=== PATIENT | female | born 1935 | race Caucasian/White ===

== ENCOUNTER 2020-05-30 08:05 | Day surgery (SDC) | payer MEDICARE ==
[~2020-05-30] VITALS: Ht 154.9 cm; Wt 59.0 kg
[~2020-05-30 08:05] MED LIST: ASPI-529 PO; ATEN50TA2 PO; CLINDAMYCIN/D5W 900mg/50ml 50 ML IV ONE; CLON-418 PO; EZET10TA6 PO; MULT-1085 PO; OSC500T PO; POTA10TA52 PO; THYR60TA2 PO; TRAZ-251 PO; VANCOMYCIN INJ 1000 MG in NORMAL SALINE 250ml IV.SOLN IV ONE; VIT1CAPS27 PO; albuterol 2.5 MG/3 ML nebule NEB ONE; ceFAZolin 2gm in dextrose, iso 50 ML IV ONE; famotidine 20mg tablet PO ONE; ringers solution, lacted 1,000 ML IV SCH
--- NOTE | 2020-05-30 08:30 | NUR ---
PT ARRIVED FOR SURGERY. WOUND ON LT LOWER EXT NOTED. WOUND APPEARS BETTER THEN THE LAST TIME PT WAS HERE FOR SURGERY BUT STILL NOT HEALED ALL THE WAY. DR. BRENNER EXAMINED WOUNDS AND CANCELED SURGERY FOR TODAY WITH ORDERS TO DRESS WOUND AND HAVE PT FOLLOW UP IN OFFICE IN ONE WEEK.
--- NOTE | 2020-05-30 09:00 | NUR ---
WOUND DRESSED TO LT LOWER EXT PER ORDER. PT INSTRUCTED TO CALL DR. BRENNER'S OFFICE FOR FOLLOW UP APPT IN ONE WEEKS. PT DRESSED HERSELF AND CALLED FOR [facility]. I SPOKE WITH PTS DAUGHTER VIA PHONE AND EXPLAINED WHY SURGERY WAS CANCELLED AND FOLLOW UP INST PER PT REQUEST.
--- NOTE | 2020-05-30 09:15 | NUR ---
PT TO POV VIA WC FOR [facility]
== END 2020-05-30 09:15 | disposition home or self-care (01) ==
LOC: SSTAY O 08:05 → UNDOADMIN 08:05 → PAS IN 08:05 → SSTAY O 09:15 → UNDODISIN 09:15 → EDSTATUS 11:00
PROVIDERS: ATTEND Orthopaedic Surgery
DX: M17.12 Unilateral primary osteoarthritis, left knee (principal); Z53.09 Procedure and treatment not carried out because of other contraindication
CPT/HCPCS: J3370; J3490; J7120

== ENCOUNTER 2020-10-16 09:07 | Day surgery (SDC) | payer MEDICARE ==
[~2020-10-16] VITALS: Ht 154.9 cm; Wt 59.7 kg
[2020-10-16] VITALS (11 sets, daily range): BP systolic 141–196; BP diastolic 66–106
[~2020-10-16 09:07] MED LIST changes: +CHLO25TA2 PO; -CLINDAMYCIN/D5W 900mg/50ml 50 ML IV ONE; +OMEP20TA5 PO; -VANCOMYCIN INJ 1000 MG in NORMAL SALINE 250ml IV.SOLN IV ONE; -albuterol 2.5 MG/3 ML nebule NEB ONE; -ceFAZolin 2gm in dextrose, iso 50 ML IV ONE; -famotidine 20mg tablet PO ONE; -ringers solution, lacted 1,000 ML IV SCH
[2020-10-16] MEDS ORDERED: LOSA25TA96 PO (10:18)
[2020-10-16] MEDS ORDERED: CHOL400T32 INJ (10:18)
[2020-10-16] MEDS ORDERED: MAGN500C16 PO (10:18)
[2020-10-16 11:25] LABS: BASOPHILS # (AUTO) 0.1 X10'3 (0-0.2); BASOPHILS % (AUTO) 1.3 % (0-1); EOSINOPHILS # (AUTO) 0.2 X10'3 (0-0.9); EOSINOPHILS % (AUTO) 2.8 % (0-6); HEMATOCRIT 39.6 % (35.0-45.0); LYMPHOCYTES # (AUTO) 1.2 X10'3 (1.1-4.8); LYMPHOCYTES % (AUTO) 14.1 % (21-51); MEAN CORPUSCULAR HEMOGLOBIN 27.8 PG (27.0-31.0); MEAN CORPUSCULAR HGB CONC 32.8 g/dL (33.0-36.5); MEAN CORPUSCULAR VOLUME 84.8 FL (78-98); MEAN PLATELET VOLUME 7.3 FL (7.4-10.4); MONOCYTES # (AUTO) 0.5 X10'3 (0-0.9); MONOCYTES % (AUTO) 6.3 % (2-12); NEUTROPHILS # (AUTO) 6.3 X10'3 (1.8-7.7); NEUTROPHILS % (AUTO) 75.5 % (42-75); PLATELET COUNT 327 X10'3 (140-440); RED BLOOD COUNT 4.66 X10'6 (4.20-5.60); RED CELL DISTRIBUTION WIDTH 14.3 % (11.5-14.5); WHITE BLOOD COUNT 8.4 X10'3 (4.5-11.0)
[2020-10-16 11:34] LABS: ALBUMIN 3.6 G/DL (3.4-5.0); ANION GAP 7 (8-16); BLOOD UREA NITROGEN 12 MG/DL (7-18); BUN/CREATININE RATIO 10.9 (6.6-38.0); CALCIUM 10.5 MG/DL (8.5-10.1); CHLORIDE 102 MMOL/L (99-107); GLUCOSE 96 MG/DL (70-104); POTASSIUM 4.3 MMOL/L (3.5-5.1); SODIUM 139 MMOL/L (135-145); TOTAL CARBON DIOXIDE 29.7 MMOL/L (24-32); eGFR 48 ML/MIN
[2020-10-16] MEDS ORDERED: LIDOcaine 1%/PF 5ML 10 MG/ML VIAL ONE (11:58)
[2020-10-16] MEDS ORDERED: fentaNYL/PF 50MCG/1 ML 2ML syringe ONE ×2 (11:59→12:50)
[2020-10-16] MEDS ORDERED: midazolam 2 mg/2 ml injection ONE ×2 (11:59→12:50)
[2020-10-16] MEDS ORDERED: heparin 1,000 UNITS/NS 500ml 500 ML ONE ×2 (12:00→13:45)
[2020-10-16] MEDS ORDERED: heparin 1,000unit/ml 10ml vial 10 ML ONE (12:00)
[2020-10-16] MEDS ORDERED: iohexol 300mg/ml 100ml inj. ONE ×2 (12:00→13:35)
[2020-10-16] MEDS ORDERED: nitroGLYCERIN-Tridil 50MG/D5W 250 ML IV ONE (14:24)
[2020-10-16] MEDS ORDERED: hydrALAZINE 20mg/ml inj. IV ONE (15:06)
== END 2020-10-16 19:23 | disposition home or self-care (01) ==
LOC: SSTAY O 09:07
PROVIDERS: ATTEND Radiology Vascular & Interventional Radiology
DX: I70.212 Atherosclerosis of native arteries of extremities with intermittent claudication, left leg (principal); I10 Essential (primary) hypertension; Z88.0 Allergy status to penicillin; Z88.2 Allergy status to sulfonamides; Z88.5 Allergy status to narcotic agent; Z88.8 Allergy status to other drugs, medicaments and biological substances; Z79.899 Other long term (current) drug therapy; Z72.89 Other problems related to lifestyle; Z20.822 Contact with and (suspected) exposure to COVID-19
CPT/HCPCS: 36415; 37224; 37228; 37232; 75710; 80048; 85025; 87635; 99152; 99153; C1725; C1760; C1769; C1894; C2623; C9803; J0360; J1644; J2250; J3010; Q9967; J3490

== ENCOUNTER 2022-04-23 10:18 | Inpatient (IN) | payer MEDICARE ==
[2022-04-23] VITALS (20 sets, daily range): BP systolic 82–181; BP diastolic 34–99
[~2022-04-23] VITALS: Ht 152.4 cm; Wt 61.0 kg
[~2022-04-23 10:18] MED LIST changes: -CHLO25TA2 PO; +CHOL400T32 INJ; +LOSA25TA96 PO; +MAGN500C4 PO; +OMEP20TA43 PO; -OMEP20TA5 PO; -OSC500T PO; +atropine 0.1mg/ml 10ml syringe ONE; +heparin 10,000 units/1 ML INJ ONE; +heparin, porcine-25,000 units/D5-250ml premix IV ONE; +sod chloride 0.9% 10ml flush syringe IV ONE
[2022-04-23] MEDS ORDERED: LIDOcaine 1%/PF 5ML 10 MG/ML VIAL ONE ×2 (10:22→10:39)
--- NOTE | 2022-04-23 10:24 | NUR ---
PT BEING SEEN BY MEDICAL ASSISTANT PRN DR. WILLIAMSON, RECEIVED VO ADMINISTER HEPARIN BOLUS STAT PER PROTOCOL, UPDATED LABS PENDING AND X-RAY NOT COMPLETED, VO TO NOT WAIT AND ADMINISTER STAT PER DR. WILLIAMSON.
[2022-04-23] MEDS ORDERED: fentaNYL/PF 50MCG/1 ML 2ML syringe ONE (10:40)
[2022-04-23] MEDS ORDERED: iohexol 350MG/ML 100ml bottle IV ONE ×2 (10:40→11:29)
[2022-04-23] MEDS ORDERED: heparin 1,000unit/ml 10ml vial 10 ML ONE (10:40)
[2022-04-23] MEDS ORDERED: heparin 10,000 units/1 ML INJ IV ONE (10:40)
[2022-04-23] MEDS ORDERED: heparin 25,000 UNIT/250ml bag 250 ML IV SCH (10:40)
[2022-04-23] MEDS ORDERED: midazolam 1 mg/ML 2ml injection ONE (10:40)
[2022-04-23] MEDS ORDERED: heparin 10,000 units/1 ML INJ IV PRN (10:40)
--- NOTE | 2022-04-23 10:51 | NUR ---
PT TAKEN TO PATIENT RELATIONS SPECIALIST
[2022-04-23] MEDS ORDERED: tirofiban 5mg in NS 100mL 100 ML IV ONE (10:57)
[2022-04-23 11:09] LABS: BASOPHILS # (AUTO) 0.1 X10'3 (0-0.2); BASOPHILS % (AUTO) 0.9 % (0-1); EOSINOPHILS # (AUTO) 0.2 X10'3 (0-0.9); EOSINOPHILS % (AUTO) 2.7 % (0-6); HEMATOCRIT 35.6 % (35.0-45.0); HEMOGLOBIN 11.9 g/dl (12.0-16.0); LYMPHOCYTES # (AUTO) 1.8 X10'3 (1.1-4.8); LYMPHOCYTES % (AUTO) 19.3 % (21-51); MEAN CORPUSCULAR HEMOGLOBIN 28.4 PG (27.0-31.0); MEAN CORPUSCULAR HGB CONC 33.6 g/dL (33.0-36.5); MEAN CORPUSCULAR VOLUME 84.6 FL (78-98); MEAN PLATELET VOLUME 8.2 FL (7.4-10.4); MONOCYTES # (AUTO) 0.7 X10'3 (0-0.9); MONOCYTES % (AUTO) 7.3 % (2-12); NEUTROPHILS # (AUTO) 6.5 X10'3 (1.8-7.7); NEUTROPHILS % (AUTO) 69.8 % (42-75); PLATELET COUNT 288 X10'3 (140-440); RED CELL DISTRIBUTION WIDTH 14.6 % (11.5-14.5); WHITE BLOOD COUNT 9.3 X10'3 (4.5-11.0)
[2022-04-23 11:17] LABS: APTT 28 SECONDS (22-32)
[2022-04-23] MEDS ORDERED: nitroGLYCERIN-Tridil 50MG/D5W 250 ML IV ONE ×2 (11:18→11:38)
[2022-04-23 11:19] LABS: ALANINE AMINOTRANSFERASE 36 U/L (12-78); ALBUMIN 3.4 G/DL (3.4-5.0); ALBUMIN/GLOBULIN RATIO 1.1 (1.1-1.5); ANION GAP 12 (8-16); ASPARTATE AMINO TRANSFERASE 100 U/L (10-37); BILIRUBIN,TOTAL 0.9 MG/DL (0.1-1.0); BLOOD UREA NITROGEN 24 MG/DL (7-18); BUN/CREATININE RATIO 16.4 (6.6-38.0); CHLORIDE 105 MMOL/L (99-107); CREATININE 1.46 MG/DL (0.40-0.90); GLUCOSE 122 MG/DL (70-104); POTASSIUM 4.4 MMOL/L (3.5-5.1); SODIUM 139 MMOL/L (135-145); TOTAL CARBON DIOXIDE 22.5 MMOL/L (24-32); TOTAL PROTEIN 6.6 G/DL (6.4-8.2); eGFR 34 ML/MIN
[2022-04-23 11:34] LABS: ALKALINE PHOSPHATASE 62 IU/L (46-116)
[2022-04-23] MEDS ORDERED: clopidogrel 300mg tablet ONE (11:59)
[2022-04-23] MEDS ORDERED: furosemide 40mg/4ml inj ONE (12:11)
[2022-04-23] MEDS: normal saline 1000ml 1,000 ML IV SCH (12:50)
[2022-04-23] MEDS ORDERED: morphine 4 MG/ML inj SYRINge IV PRN (13:05)
[2022-04-23] MEDS ORDERED: acetaminophen 325mg tablet PO PRN ×3 (13:05→16:00)
[2022-04-23] MEDS ORDERED: OXAZEpam 15mg capsule PO PRN (13:05)
[2022-04-23] MEDS ORDERED: magnesium hydroxide 30ml (MOM) UD suspension PO PRN ×2 (13:05→16:00)
[2022-04-23] MEDS ORDERED: cyclobenzaprine 10mg tablet PO PRN (13:05)
[2022-04-23] MEDS ORDERED: HYDROcodone/acetaminophen 10/325mg tab PO PRN (13:05)
[2022-04-23] MEDS ORDERED: proCHLORperazine 10 MG/2 ml inj IV PRN (13:05)
[2022-04-23] MEDS ORDERED: nitroGLYCERIN-Tridil 50MG/D5W 250 ML IV PRN (13:45)
[2022-04-23] MEDS ORDERED: sodium chloride 0.45% 1,000 ML IV SCH (13:45)
[2022-04-23] MEDS ORDERED: CLOPIDOGREL BISULFATE 300MG TAB PO ONE (14:00)
--- NOTE | 2022-04-23 15:00 | NUR ---
VSS, pt's R lilliana dsg CDI and sheath in, Patient report given, questions answered & plan of care reviewed with EARLINE Rivas, pt in room #2011 and in no distress at this time.
[2022-04-23] MEDS ORDERED: potassium CL 10mEq/100ml bag 100 ML IV PRN (16:00)
[2022-04-23] MEDS ORDERED: magnesium 4gm in 100ml NS 100 ML IV PRN (16:00)
[2022-04-23] MEDS ORDERED: ondansetron/PF 4mg/2ml inj IV PRN (16:00)
[2022-04-23] MEDS ORDERED: ipratropium/albuterol 3ml nebule NEB PRN (16:00)
[2022-04-23] MEDS ORDERED: LIDOcaine 2% 10ml TOPICAL JELLY (Urojet) TP ONE (16:00)
[2022-04-23] MEDS ORDERED: potassium Cl 20mEq/100mL bag 100 ML IV PRN (16:00)
[2022-04-23] MEDS ORDERED: acetaminophen 650mg rectal suppository RC PRN (16:00)
[2022-04-23] MEDS ORDERED: magnesium 2GM in 50ml NS 50 ML IV PRN (16:00)
[2022-04-23] MEDS ORDERED: POTASSIUM BICARB 20meq eff tab 20 MEQ TABLET.EFF PO PRN ×2 (16:00)
[2022-04-23] MEDS ORDERED: cholecalciferol (vitamin D3) 400 unit (10mcg) tablet PO SCH (16:30)
[2022-04-23] MEDS ORDERED: ESOM20CA38 PO (16:54)
[2022-04-23] MEDS ORDERED: ROSU40TA22 PO (16:54)
[2022-04-23] MEDS ORDERED: POTA-208 PO (16:54)
[2022-04-23] MEDS ORDERED: FENO48TA10 PO (16:54)
[2022-04-23] MEDS ORDERED: ATEN50TA8 PO (16:54)
[2022-04-23] MEDS ORDERED: LOSA50TA64 PO (16:54)
[2022-04-23] MEDS ORDERED: TRAZ-256 PO (16:54)
[2022-04-23] MEDS ORDERED: THYR90TA12 PO (16:54)
--- NOTE | 2022-04-23 18:30 | NUR ---
I've received report and assumed care of pt, Pt resting in bed, family at bedside, rt femoral sheath assessed with Day shift bellows charger assembler, no hematoma noted, distal pulses are Doppler bilateral, cool to touch. Pt denies chest pain, numbness or tingling. Speech clear thought process clear.
--- NOTE | 2022-04-23 18:31 | NUR ---
Pt was bleeding at right sheath groin site. Pressure applied for 8 min. dressing changed. no hematoma, sand bag placed on site
[2022-04-23] MEDS ORDERED: atenolol 50mg tablet PO SCH (20:00)
[2022-04-23] MEDS ORDERED: losartan 50mg tablet PO SCH (20:00)
[2022-04-23] MEDS: docusate sod 100mg capsule PO SCH (20:00)
[2022-04-23] MEDS ORDERED: docusate sod 100mg capsule PO SCH (20:00)
[2022-04-23] MEDS: tirofiban 5mg in NS 100mL 100 ML IV SCH (20:37)
[2022-04-23] MEDS: famotidine 20mg tablet PO SCH (20:37)
[2022-04-23] MEDS: traZODone 50mg tablet PO SCH (20:37)
[2022-04-23] MEDS: magnesium oxide 400mg tablet PO SCH (20:37)
--- NOTE | 2022-04-23 20:45 | NUR ---
pt had a brief episode of hypotension, SBP in the 60's, sever bradycardia heart rate in the 30's, pt was unresponsive but eyes open, 1 amp atropine give and 200 ml fluid bolus administered, this lasted approx 45 sec, pt became more responsive followed by a brief moment of confusion, Spoke to Kaz Jones who ordered dobutamine 10 mcg/kg. min to keep sbp greater then 100. Stat echo ordered, Dr. Mccurdy in to evaluate pt. Message left for Dr. Swan and Dr. Lopez as Dr. Mccurdy wanted to update them on pts condition. Dr Mccurdy also wanted all betablockers, BECKIE and ARBs discontinued at this time.
[2022-04-23] MEDS: POTASSIUM BICARBONATE/CIT AC 10 MEQ TABLET.EFF PO SCH (21:00)
[2022-04-23] MEDS ORDERED: traZODone 50mg tablet PO SCH (21:00)
[2022-04-23] MEDS ORDERED: DOBUTamine-DoBUTrex 500mg/D5W 250 ML IV ONE (21:24)
[2022-04-23] MEDS ORDERED: DOBUTamine-DoBUTrex 500mg/D5W 250 ML IV SCH (21:25)
[2022-04-23 21:50] LABS: BASOPHILS % (AUTO) 0.5 % (0-1); EOSINOPHILS # (AUTO) 0.1 X10'3 (0-0.9); EOSINOPHILS % (AUTO) 0.9 % (0-6); HEMATOCRIT 33.6 % (35.0-45.0); HEMOGLOBIN 11.2 g/dl (12.0-16.0); LYMPHOCYTES # (AUTO) 1.8 X10'3 (1.1-4.8); LYMPHOCYTES % (AUTO) 18.3 % (21-51); MEAN CORPUSCULAR HEMOGLOBIN 28.1 PG (27.0-31.0); MEAN CORPUSCULAR HGB CONC 33.4 g/dL (33.0-36.5); MEAN CORPUSCULAR VOLUME 84.1 FL (78-98); MEAN PLATELET VOLUME 8.1 FL (7.4-10.4); MONOCYTES # (AUTO) 0.9 X10'3 (0-0.9); MONOCYTES % (AUTO) 9.8 % (2-12); NEUTROPHILS # (AUTO) 6.8 X10'3 (1.8-7.7); NEUTROPHILS % (AUTO) 70.5 % (42-75); PLATELET COUNT 257 X10'3 (140-440); WHITE BLOOD COUNT 9.6 X10'3 (4.5-11.0)
[2022-04-23] MEDS ORDERED: albumin (Human) 5% 250ml 250 ML IV ONE (23:00)
[2022-04-23] MEDS ORDERED: NORepinephrine 8mg/ 250ml NS 250 ML IV SCH (23:00)
[2022-04-24] VITALS (23 sets, daily range): BP systolic 97–142; BP diastolic 36–64
[2022-04-24] MEDS ORDERED: albumin (Human) 5% 250ml 250 ML IV ONE ×2 (03:35→03:50)
[2022-04-24 03:45] LABS: BASOPHILS % (AUTO) 0.3 % (0-1); EOSINOPHILS % (AUTO) 0.4 % (0-6); HEMATOCRIT 28.9 % (35.0-45.0); HEMOGLOBIN 9.8 g/dl (12.0-16.0); LYMPHOCYTES % (AUTO) 11.6 % (21-51); MEAN CORPUSCULAR HEMOGLOBIN 28.5 PG (27.0-31.0); MEAN CORPUSCULAR HGB CONC 33.8 g/dL (33.0-36.5); MEAN CORPUSCULAR VOLUME 84.4 FL (78-98); MEAN PLATELET VOLUME 8.5 FL (7.4-10.4); MONOCYTES # (AUTO) 0.5 X10'3 (0-0.9); MONOCYTES % (AUTO) 6.4 % (2-12); NEUTROPHILS # (AUTO) 6.8 X10'3 (1.8-7.7); NEUTROPHILS % (AUTO) 81.3 % (42-75); PLATELET COUNT 223 X10'3 (140-440); RED BLOOD COUNT 3.43 X10'6 (4.20-5.60); RED CELL DISTRIBUTION WIDTH 14.7 % (11.5-14.5); WHITE BLOOD COUNT 8.4 X10'3 (4.5-11.0)
[2022-04-24 03:55] LABS: APTT 62 SECONDS (22-32)
[2022-04-24 04:17] LABS: ALANINE AMINOTRANSFERASE 38 U/L (12-78); ALBUMIN 3.3 G/DL (3.4-5.0); ALBUMIN/GLOBULIN RATIO 1.2 (1.1-1.5); ALKALINE PHOSPHATASE 49 IU/L (46-116); ANION GAP 14 (8-16); ASPARTATE AMINO TRANSFERASE 175 U/L (10-37); BILIRUBIN,TOTAL 0.9 MG/DL (0.1-1.0); BLOOD UREA NITROGEN 25 MG/DL (7-18); BUN/CREATININE RATIO 15.8 (6.6-38.0); CALCIUM 8.8 MG/DL (8.5-10.1); CHLORIDE 100 MMOL/L (99-107); CHOL/HDL RATIO 2.6 (0.00-4.99); CHOLESTEROL 87 MG/DL (0-200); CREATINE KINASE 743 U/L (26-192); CREATININE 1.58 MG/DL (0.40-0.90); GLUCOSE 99 MG/DL (70-104); HDL CHOLESTEROL 34 MG/DL (35-60); LDL CHOLESTEROL 41 MG/DL (50-100); MAGNESIUM 1.7 MG/DL (1.5-2.4); PHOSPHORUS 4.1 MG/DL (2.3-4.5); POTASSIUM 3.8 MMOL/L (3.5-5.1); SODIUM 134 MMOL/L (135-145); TOTAL CARBON DIOXIDE 20.4 MMOL/L (24-32); TRIGLYCERIDES 55 MG/DL (20-135); eGFR 31 ML/MIN
--- NOTE | 2022-04-24 05:42 | NUR ---
[address] Swan regarding pts low urine output and sbp less then 100 new orders for 5% albumin 250 ml and start low dose Levophed. MD is aware that the pt needs a CVL, does not have one, the dobutamine and Levophed will be transfusing via PIV. [address] Swan once more as pt continues to have low urine output, orders received fro 500ml of 5% albumin.
--- NOTE | 2022-04-24 06:03 | NUR ---
report given to rec rn plan of care reviewed
[2022-04-24] MEDS: tirofiban 5mg in NS 100mL 100 ML IV SCH (07:00)
[2022-04-24] MEDS: multivitamins, therapeutics tablet PO SCH (07:17)
[2022-04-24] MEDS: magnesium oxide 400mg tablet PO SCH ×2 (07:17→20:15)
[2022-04-24] MEDS: pantoprazole 40mg Tablet.DR PO SCH (07:18)
[2022-04-24] MEDS: atorvastatin 20mg tablet PO SCH (07:18)
[2022-04-24] MEDS: famotidine 20mg tablet PO SCH (07:19)
[2022-04-24] MEDS: docusate sod 100mg capsule PO SCH ×2 (07:19→20:15)
[2022-04-24] MEDS: clopidogrel 75mg tablet PO SCH (07:19)
--- NOTE | 2022-04-24 07:26 | NUR ---
Patient in room CICU 2010. I have received report from Pau Gloria RN and had the opportunity to ask questions and assume patient care.
--- NOTE | 2022-04-24 07:26 | NUR ---
TIRE TESTER Visit Advised to hold catapres this am and CN agreed. Orders received.
[2022-04-24] MEDS: fenofibrate 48mg tablet PO SCH (07:29)
[2022-04-24] MEDS: thyroid, pork 30mg tablet PO SCH (07:29)
[2022-04-24] MEDS ORDERED: cloNIDine 0.1 mg tablet PO SCH (08:00)
[2022-04-24] MEDS ORDERED: atenolol 50mg tablet PO SCH (08:00)
[2022-04-24] MEDS ORDERED: ezetimibe 10mg tablet PO SCH (08:00)
[2022-04-24] MEDS ORDERED: THYROID PORK PO SCH (08:00)
[2022-04-24] MEDS ORDERED: losartan 25mg tablet PO SCH (08:00)
[2022-04-24] MEDS: K and/or MAG REPLACEMENT MC SCH (08:03)
[2022-04-24] MEDS: aspirin 81mg tab.chew PO SCH (08:30)
[2022-04-24] MEDS ORDERED: LIDOcaine 1%/PF 5ML 10 MG/ML VIAL ONE (10:42)
--- NOTE | 2022-04-24 11:19 | NUR ---
Sheath Removal Mikie PATTEN from sugar laboratory assistant removed sheath and inserted VasoSeal. Pt given [place] pre removal but was painful. Mikie indicated pt had a hematoma at site. Smal 2x2 dressing with clear dressing applied. No bleeding noted at this time. Pt understands that she must keep that right leg still until approximately [address] Lopez to see and agreed with Dobutamine being held for now.
--- NOTE | 2022-04-24 17:22 | NUR ---
Repositioned: Post sheath removal time finishes. Not s/s of bleeding or hematoma enlargement at site. Pt repositioned to comfort on Rt side.
--- NOTE | 2022-04-24 18:39 | NUR ---
Patient in room CICU 2010. I have received report from Mary PATTEN and had the opportunity to ask questions and assume patient care.
--- NOTE | 2022-04-24 19:40 | NUR ---
Patient complains of nausea. 40mg of Zofran was administered. No acute distress noted. Pt. complains of IWill continue to monitor.
[2022-04-24] MEDS: traZODone 50mg tablet PO SCH (20:15)
[2022-04-24] MEDS: POTASSIUM BICARBONATE/CIT AC 10 MEQ TABLET.EFF PO SCH (20:15)
[2022-04-25] VITALS (17 sets, daily range): BP systolic 114–205; BP diastolic 48–105
[2022-04-25] MEDS: normal saline 1000ml 1,000 ML IV SCH ×2 (01:35→10:15)
[2022-04-25 07:56] LABS: BASOPHILS % (AUTO) 0.6 % (0-1); EOSINOPHILS # (AUTO) 0.3 X10'3 (0-0.9); EOSINOPHILS % (AUTO) 4.1 % (0-6); HEMATOCRIT 28.6 % (35.0-45.0); HEMOGLOBIN 9.6 g/dl (12.0-16.0); LYMPHOCYTES # (AUTO) 0.9 X10'3 (1.1-4.8); LYMPHOCYTES % (AUTO) 11.6 % (21-51); MEAN CORPUSCULAR HEMOGLOBIN 28.4 PG (27.0-31.0); MEAN CORPUSCULAR HGB CONC 33.5 g/dL (33.0-36.5); MEAN CORPUSCULAR VOLUME 84.8 FL (78-98); MEAN PLATELET VOLUME 8.4 FL (7.4-10.4); MONOCYTES # (AUTO) 0.6 X10'3 (0-0.9); MONOCYTES % (AUTO) 8.1 % (2-12); NEUTROPHILS # (AUTO) 5.9 X10'3 (1.8-7.7); NEUTROPHILS % (AUTO) 75.6 % (42-75); PLATELET COUNT 198 X10'3 (140-440); RED BLOOD COUNT 3.38 X10'6 (4.20-5.60); WHITE BLOOD COUNT 7.8 X10'3 (4.5-11.0)
[2022-04-25] MEDS: K and/or MAG REPLACEMENT MC SCH (08:00)
[2022-04-25] MEDS: docusate sod 100mg capsule PO SCH ×2 (08:12→19:39)
[2022-04-25] MEDS: pantoprazole 40mg Tablet.DR PO SCH (08:13)
[2022-04-25] MEDS: multivitamins, therapeutics tablet PO SCH (08:13)
[2022-04-25] MEDS: thyroid, pork 30mg tablet PO SCH (08:13)
[2022-04-25] MEDS: fenofibrate 48mg tablet PO SCH (08:13)
[2022-04-25] MEDS: magnesium oxide 400mg tablet PO SCH ×2 (08:13→19:39)
[2022-04-25] MEDS: clopidogrel 75mg tablet PO SCH (08:13)
[2022-04-25 08:14] LABS: ALBUMIN 3.4 G/DL (3.4-5.0); ANION GAP 5 (8-16); BLOOD UREA NITROGEN 25 MG/DL (7-18); BUN/CREATININE RATIO 14.6 (6.6-38.0); CHLORIDE 105 MMOL/L (99-107); CREATININE 1.71 MG/DL (0.40-0.90); GLUCOSE 104 MG/DL (70-104); SODIUM 136 MMOL/L (135-145); TOTAL CARBON DIOXIDE 25.7 MMOL/L (24-32); eGFR 28 ML/MIN
[2022-04-25] MEDS: atorvastatin 20mg tablet PO SCH (08:14)
[2022-04-25] MEDS: aspirin 81mg tab.chew PO SCH (08:14)
--- NOTE | 2022-04-25 09:53 | NUR ---
transfer report given to Frannie PATTEN for bed 3027V. Patient to be transferred via wheel chair. VVS Patient in stable condition.
[2022-04-25] MEDS: carVEDilol 3.125mg tablet PO SCH ×2 (12:01→19:39)
--- NOTE | 2022-04-25 14:16 | NUR ---
Patient in room PCU 3024. I have received report from Frannie PATTEN and had the opportunity to ask questions and assume patient care.
[2022-04-25] MEDS: furosemide 20MG tablet PO SCH (14:17)
--- NOTE | 2022-04-25 14:32 | NUR ---
[facility] REMOVED, IT WAS INTACT,PROVIDED PERICARE.
[2022-04-25] MEDS ORDERED: lactulose 20gm/30ml cup PO PRN (16:00)
--- NOTE | 2022-04-25 18:30 | NUR ---
Patient in room PCU 3024. I have received report from EARLINE Cadet and had the opportunity to ask questions and assume patient care.
--- NOTE | 2022-04-25 18:48 | NUR ---
Problems reprioritized. Patient report given, questions answered & plan of care reviewed with Magaly PATTEN.
[2022-04-25] MEDS: traZODone 50mg tablet PO SCH (20:39)
[2022-04-25] MEDS: POTASSIUM BICARBONATE/CIT AC 10 MEQ TABLET.EFF PO SCH (20:39)
[2022-04-26 02:00] VITALS: BP 152/77
[2022-04-26 06:00] VITALS: BP 157/74
--- NOTE | 2022-04-26 06:24 | NUR ---
Patient in room PCU 3024. I have received report from Magaly PATTEN and had the opportunity to ask questions and assume patient care.
--- NOTE | 2022-04-26 06:26 | NUR ---
Problems reprioritized. Patient report given, questions answered & plan of care reviewed with EARLINE Cadet.
[2022-04-26] MEDS ORDERED: thyroid, pork 30mg tablet PO SCH (07:00)
[2022-04-26 07:18] LABS: BASOPHILS % (AUTO) 0.5 % (0-1); EOSINOPHILS # (AUTO) 0.4 X10'3 (0-0.9); EOSINOPHILS % (AUTO) 4.4 % (0-6); HEMATOCRIT 26.8 % (35.0-45.0); HEMOGLOBIN 9.1 g/dl (12.0-16.0); LYMPHOCYTES # (AUTO) 1.1 X10'3 (1.1-4.8); MEAN CORPUSCULAR HEMOGLOBIN 28.6 PG (27.0-31.0); MEAN CORPUSCULAR HGB CONC 34.1 g/dL (33.0-36.5); MEAN CORPUSCULAR VOLUME 83.8 FL (78-98); MEAN PLATELET VOLUME 8.5 FL (7.4-10.4); MONOCYTES # (AUTO) 0.7 X10'3 (0-0.9); MONOCYTES % (AUTO) 8.3 % (2-12); NEUTROPHILS # (AUTO) 6.7 X10'3 (1.8-7.7); NEUTROPHILS % (AUTO) 74.8 % (42-75); PLATELET COUNT 197 X10'3 (140-440); RED BLOOD COUNT 3.19 X10'6 (4.20-5.60); RED CELL DISTRIBUTION WIDTH 15.1 % (11.5-14.5)
[2022-04-26 07:30] LABS: ALBUMIN 3.5 G/DL (3.4-5.0); ANION GAP 5 (8-16); BLOOD UREA NITROGEN 21 MG/DL (7-18); CALCIUM 9.4 MG/DL (8.5-10.1); CHLORIDE 104 MMOL/L (99-107); GLUCOSE 101 MG/DL (70-104); MAGNESIUM 1.8 MG/DL (1.5-2.4); POTASSIUM 4.5 MMOL/L (3.5-5.1); SODIUM 136 MMOL/L (135-145); TOTAL CARBON DIOXIDE 26.9 MMOL/L (24-32); eGFR 33 ML/MIN
[2022-04-26] MEDS: aspirin 81mg tab.chew PO SCH (07:41)
[2022-04-26] MEDS: atorvastatin 20mg tablet PO SCH (07:41)
[2022-04-26] MEDS: docusate sod 100mg capsule PO SCH (07:42)
[2022-04-26] MEDS: magnesium oxide 400mg tablet PO SCH (07:42)
[2022-04-26] MEDS: multivitamins, therapeutics tablet PO SCH (07:43)
[2022-04-26] MEDS: clopidogrel 75mg tablet PO SCH (07:43)
[2022-04-26] MEDS: pantoprazole 40mg Tablet.DR PO SCH (07:43)
[2022-04-26] MEDS: furosemide 20MG tablet PO SCH (07:43)
[2022-04-26] MEDS: K and/or MAG REPLACEMENT MC SCH (08:00)
[2022-04-26] MEDS ORDERED: famotidine 20mg tablet PO SCH (08:00)
[2022-04-26] MEDS ORDERED: carVEDilol 12.5mg tablet PO SCH (08:00)
[2022-04-26] MEDS ORDERED: CARV-50 PO (09:27)
[2022-04-26] MEDS ORDERED: CLOP75TA34 PO (09:27)
[2022-04-26] MEDS ORDERED: FURO20TA4 PO (10:36)
[2022-04-26 11:00] VITALS: BP 119/71
[2022-04-26] MEDS: fenofibrate 48mg tablet PO SCH (11:12)
--- NOTE | 2022-04-26 15:46 | NUR ---
Patients discharge instructions reviewed with patient and patient verbalized understanding with pie topper Matias. pie topper stated patient has her new medications. Patients IV dc'd cannula intact. Tele DC for discharge. Patient states she has all her belongings. Patient was taken to daughters vehicle via wheelchair by community specialist Jordyn.
== END 2022-04-26 15:25 | disposition home health service (06) | DRG 246 ==
LOC: ER 10:18 → UNDOADMIN 15:11 → CICU 2S 15:11 → PCU 3S 04-25 10:15
PROVIDERS: ADMIT Internal Medicine Cardiovascular Disease; ATTEND Internal Medicine Cardiovascular Disease
PROC: 4A023N7 Measurement of Cardiac Sampling and Pressure, Left Heart, Percutaneous Approach (ICD-10-PCS; principal; 2022-04-23)
PROC: 027034Z Dilation of Coronary Artery, One Artery with Drug-eluting Intraluminal Device, Percutaneous Approach (ICD-10-PCS; 2022-04-23)
PROC: B2111ZZ Fluoroscopy of Multiple Coronary Arteries using Low Osmolar Contrast (ICD-10-PCS; 2022-04-23)
PROC: B2151ZZ Fluoroscopy of Left Heart using Low Osmolar Contrast (ICD-10-PCS; 2022-04-23)
PROC: B41F1ZZ Fluoroscopy of Right Lower Extremity Arteries using Low Osmolar Contrast (ICD-10-PCS; 2022-04-23)
DX: I21.09 ST elevation (STEMI) myocardial infarction involving other coronary artery of anterior wall (principal); I50.21 Acute systolic (congestive) heart failure; R57.0 Cardiogenic shock; I13.0 Hypertensive heart and chronic kidney disease with heart failure and stage 1 through stage 4 chronic kidney disease, or unspecified chronic kidney disease; E87.1 Hypo-osmolality and hyponatremia; N17.9 Acute kidney failure, unspecified; N18.30 Chronic kidney disease, stage 3 unspecified; J45.909 Unspecified asthma, uncomplicated; I73.9 Peripheral vascular disease, unspecified; I65.29 Occlusion and stenosis of unspecified carotid artery; E03.9 Hypothyroidism, unspecified; D64.9 Anemia, unspecified; E78.5 Hyperlipidemia, unspecified; G25.81 Restless legs syndrome; I34.1 Nonrheumatic mitral (valve) prolapse; F09 Unspecified mental disorder due to known physiological condition; K21.9 Gastro-esophageal reflux disease without esophagitis; I25.5 Ischemic cardiomyopathy; Z96.611 Presence of right artificial shoulder joint; F32.A Depression, unspecified; R74.01 Elevation of levels of liver transaminase levels; Z96.612 Presence of left artificial shoulder joint; G40.909 Epilepsy, unspecified, not intractable, without status epilepticus; I25.10 Atherosclerotic heart disease of native coronary artery without angina pectoris; Z86.011 Personal history of benign neoplasm of the brain; Z79.02 Long term (current) use of antithrombotics/antiplatelets; Z79.82 Long term (current) use of aspirin; Z79.899 Other long term (current) drug therapy; Z85.828 Personal history of other malignant neoplasm of skin; Z88.0 Allergy status to penicillin; Z95.5 Presence of coronary angioplasty implant and graft; Z88.5 Allergy status to narcotic agent; Z88.2 Allergy status to sulfonamides
CPT/HCPCS: 93306; 93308; 93458; 99285; C9606; 36415; 71045; 80048; 80053; 80061; 82550; 82948; 83735; 83880; 84100; 84443; 84484; 85025; 85610; 85730; 93005; 94760; 97116; 97161; 97530; 99152; 99153; A4314; A4620; A4649; A6212; A6258; A6260; A6449; C1725; C1751; C1760; C1769; C1874; G0378; J0461; J1250; J1644; J1940; J2250; J2405; J3010; J3246; J3490; J7030; J7040; P9045; Q9967

== ENCOUNTER 2022-04-30 11:51 | Emergency (ER) | payer MEDICARE ==
[~2022-04-30] VITALS: Ht 154.9 cm; Wt 52.3 kg
[~2022-04-30 11:51] MED LIST changes: -ATEN50TA2 PO; +CARV-50 PO; -CHOL400T32 INJ; -CLON-418 PO; +CLOP75TA34 PO; +ESOM20CA38 PO; -EZET10TA6 PO; +FENO48TA10 PO; +FURO20TA4 PO; -LOSA25TA96 PO; +LOSA50TA64 PO; -MAGN500C4 PO; -OMEP20TA43 PO; +POTA-208 PO; -POTA10TA52 PO; +ROSU40TA22 PO; -THYR60TA2 PO; +THYR90TA12 PO; -TRAZ-251 PO; +TRAZ-256 PO; -VIT1CAPS27 PO; -atropine 0.1mg/ml 10ml syringe ONE; -heparin 10,000 units/1 ML INJ ONE; -heparin, porcine-25,000 units/D5-250ml premix IV ONE; -sod chloride 0.9% 10ml flush syringe IV ONE
[2022-04-30] MEDS ORDERED: normal saline 1000ML IV soln IVB ONE (12:00)
[2022-04-30 12:27] LABS: BASOPHILS # (AUTO) 0.1 X10'3 (0-0.2); BASOPHILS % (AUTO) 1.1 % (0-1); EOSINOPHILS # (AUTO) 0.4 X10'3 (0-0.9); EOSINOPHILS % (AUTO) 5.9 % (0-6); HEMATOCRIT 30.4 % (35.0-45.0); HEMOGLOBIN 10.3 g/dl (12.0-16.0); LYMPHOCYTES % (AUTO) 14.1 % (21-51); MEAN CORPUSCULAR HEMOGLOBIN 28.3 PG (27.0-31.0); MEAN CORPUSCULAR HGB CONC 33.8 g/dL (33.0-36.5); MEAN CORPUSCULAR VOLUME 83.6 FL (78-98); MEAN PLATELET VOLUME 7.7 FL (7.4-10.4); MONOCYTES # (AUTO) 0.9 X10'3 (0-0.9); MONOCYTES % (AUTO) 12.5 % (2-12); NEUTROPHILS # (AUTO) 4.7 X10'3 (1.8-7.7); NEUTROPHILS % (AUTO) 66.4 % (42-75); PLATELET COUNT 351 X10'3 (140-440); RED BLOOD COUNT 3.64 X10'6 (4.20-5.60); RED CELL DISTRIBUTION WIDTH 14.6 % (11.5-14.5); WHITE BLOOD COUNT 7.1 X10'3 (4.5-11.0)
[2022-04-30 12:45] LABS: ALANINE AMINOTRANSFERASE 30 U/L (12-78); ALBUMIN 3.7 G/DL (3.4-5.0); ALBUMIN/GLOBULIN RATIO 1.2 (1.1-1.5); ALKALINE PHOSPHATASE 65 IU/L (46-116); ANION GAP 9 (8-16); ASPARTATE AMINO TRANSFERASE 26 U/L (10-37); BILIRUBIN,TOTAL 0.7 MG/DL (0.1-1.0); BLOOD UREA NITROGEN 29 MG/DL (7-18); BUN/CREATININE RATIO 14.6 (6.6-38.0); CALCIUM 10.7 MG/DL (8.5-10.1); CHLORIDE 100 MMOL/L (99-107); CREATININE 1.99 MG/DL (0.40-0.90); GLUCOSE 158 MG/DL (70-104); POTASSIUM 3.8 MMOL/L (3.5-5.1); SODIUM 136 MMOL/L (135-145); TOTAL CARBON DIOXIDE 26.6 MMOL/L (24-32); TOTAL PROTEIN 6.9 G/DL (6.4-8.2); eGFR 24 ML/MIN
[2022-04-30 13:25] VITALS: BP 160/91
[2022-04-30 13:35] LABS: COLOR,URINE YELLOW (Yellow); GLUCOSE, URINE NEGATIVE (Neg); KETONES,URINE NEGATIVE (Neg); LEUKOCYTE ESTERASE ,URINE NEGATIVE (Neg); NITRITES, URINE NEGATIVE (Neg); OCCULT BLOOD,URINE NEGATIVE (Neg); PROTEIN,URINE NEGATIVE (Neg); UROBILINOGEN,URINE 0.2 E.U/dL (0.2-1.0)
[2022-04-30 13:37] LABS: UA COLLECTION TYPE NON-SPECIFIED
[2022-04-30 13:38] LABS: CLARITY,URINE CLEAR (Clear)
== END 2022-04-30 15:04 | disposition home or self-care (01) ==
LOC: ER 11:51
DX: R53.1 Weakness (principal); I21.3 ST elevation (STEMI) myocardial infarction of unspecified site; Z98.890 Other specified postprocedural states; Z79.82 Long term (current) use of aspirin; Z79.899 Other long term (current) drug therapy; Z88.2 Allergy status to sulfonamides; Z88.5 Allergy status to narcotic agent; Z88.0 Allergy status to penicillin
CPT/HCPCS: 36415; 71045; 80053; 81003; 83880; 84484; 85025; 93005; 96360; 96361; 99285; J7030

== ENCOUNTER 2022-07-07 13:25 | Emergency (ER) | payer MEDICARE ==
[~2022-07-07] VITALS: Ht 154.9 cm; Wt 48.0 kg
[~2022-07-07 13:25] MED LIST changes: +CHOL10008 PO; -ESOM20CA38 PO; -FENO48TA10 PO; +UBID1CAP54 PO; +VIT1CAPS46 PO
[2022-07-07 14:10] VITALS: BP 168/80
[2022-07-07 14:38] LABS: BASOPHILS # (AUTO) 0.1 X10'3 (0-0.2); BASOPHILS % (AUTO) 1.1 % (0-1); EOSINOPHILS # (AUTO) 0.3 X10'3 (0-0.9); EOSINOPHILS % (AUTO) 5.8 % (0-6); HEMATOCRIT 32.1 % (35.0-45.0); HEMOGLOBIN 10.3 g/dl (12.0-16.0); LYMPHOCYTES # (AUTO) 0.9 X10'3 (1.1-4.8); LYMPHOCYTES % (AUTO) 15.6 % (21-51); MEAN CORPUSCULAR HEMOGLOBIN 27.4 PG (27.0-31.0); MEAN CORPUSCULAR HGB CONC 32.1 g/dL (33.0-36.5); MEAN CORPUSCULAR VOLUME 85.3 FL (78-98); MEAN PLATELET VOLUME 7.2 FL (7.4-10.4); MONOCYTES # (AUTO) 0.6 X10'3 (0-0.9); MONOCYTES % (AUTO) 9.8 % (2-12); NEUTROPHILS # (AUTO) 3.8 X10'3 (1.8-7.7); NEUTROPHILS % (AUTO) 67.7 % (42-75); PLATELET COUNT 264 X10'3 (140-440); RED BLOOD COUNT 3.77 X10'6 (4.20-5.60); RED CELL DISTRIBUTION WIDTH 15.7 % (11.5-14.5); WHITE BLOOD COUNT 5.7 X10'3 (4.5-11.0)
[2022-07-07 14:48] LABS: APTT 26 SECONDS (22-32)
[2022-07-07 14:49] LABS: ALANINE AMINOTRANSFERASE 19 U/L (12-78); ALBUMIN 3.5 G/DL (3.4-5.0); ALBUMIN/GLOBULIN RATIO 1.2 (1.1-1.5); ANION GAP 5 (8-16); ASPARTATE AMINO TRANSFERASE 19 U/L (10-37); BILIRUBIN,TOTAL 0.5 MG/DL (0.1-1.0); BLOOD UREA NITROGEN 16 MG/DL (7-18); BUN/CREATININE RATIO 12.7 (6.6-38.0); CALCIUM 10.1 MG/DL (8.5-10.1); CHLORIDE 108 MMOL/L (99-107); CREATININE 1.26 MG/DL (0.40-0.90); GLUCOSE 168 MG/DL (70-104); POTASSIUM 4.3 MMOL/L (3.5-5.1); SODIUM 140 MMOL/L (135-145); TOTAL CARBON DIOXIDE 27.2 MMOL/L (24-32); TOTAL PROTEIN 6.5 G/DL (6.4-8.2); eGFR 40 ML/MIN
[2022-07-07 15:38] LABS: ALKALINE PHOSPHATASE 92 IU/L (46-116)
== END 2022-07-07 16:08 | disposition home or self-care (01) ==
LOC: ER 13:26
DX: S80.11XA Contusion of right lower leg, initial encounter (principal); L98.8 Other specified disorders of the skin and subcutaneous tissue; I10 Essential (primary) hypertension; Z98.890 Other specified postprocedural states; Z88.0 Allergy status to penicillin; Z88.2 Allergy status to sulfonamides; Z88.5 Allergy status to narcotic agent; Z79.82 Long term (current) use of aspirin; Z79.899 Other long term (current) drug therapy; X58.XXXA Exposure to other specified factors, initial encounter; Y93.89 Activity, other specified; Y92.89 Other specified places as the place of occurrence of the external cause; Y99.8 Other external cause status
CPT/HCPCS: 36415; 80053; 85025; 85610; 85730; 99283; A6258; A6446; A6449

== ENCOUNTER 2022-07-25 11:14 | Observation (INO) | payer MEDICARE ==
[~2022-07-25] VITALS: Ht 154.9 cm; Wt 51.4 kg
[2022-07-25 13:12] LABS: BASOPHILS # (AUTO) 0.1 X10'3 (0-0.2); BASOPHILS % (AUTO) 1.3 % (0-1); EOSINOPHILS # (AUTO) 0.4 X10'3 (0-0.9); EOSINOPHILS % (AUTO) 5.1 % (0-6); HEMATOCRIT 33.2 % (35.0-45.0); LYMPHOCYTES % (AUTO) 14.6 % (21-51); MEAN CORPUSCULAR HEMOGLOBIN 27.1 PG (27.0-31.0); MEAN CORPUSCULAR HGB CONC 33.1 g/dL (33.0-36.5); MEAN CORPUSCULAR VOLUME 81.7 FL (78-98); MEAN PLATELET VOLUME 7.2 FL (7.4-10.4); MONOCYTES # (AUTO) 0.6 X10'3 (0-0.9); MONOCYTES % (AUTO) 8.1 % (2-12); NEUTROPHILS % (AUTO) 70.9 % (42-75); PLATELET COUNT 270 X10'3 (140-440); RED BLOOD COUNT 4.06 X10'6 (4.20-5.60); RED CELL DISTRIBUTION WIDTH 15.6 % (11.5-14.5)
[2022-07-25 13:25] LABS: ALANINE AMINOTRANSFERASE 17 U/L (12-78); ALBUMIN 3.6 G/DL (3.4-5.0); ALBUMIN/GLOBULIN RATIO 1.2 (1.1-1.5); ALKALINE PHOSPHATASE 110 IU/L (46-116); ANION GAP 6 (8-16); ASPARTATE AMINO TRANSFERASE 22 U/L (10-37); BILIRUBIN,TOTAL 0.5 MG/DL (0.1-1.0); BLOOD UREA NITROGEN 23 MG/DL (7-18); BUN/CREATININE RATIO 21.7 (6.6-38.0); CALCIUM 10.5 MG/DL (8.5-10.1); CHLORIDE 105 MMOL/L (99-107); CREATININE 1.06 MG/DL (0.40-0.90); GLUCOSE 105 MG/DL (70-104); POTASSIUM 4.5 MMOL/L (3.5-5.1); SODIUM 138 MMOL/L (135-145); TOTAL CARBON DIOXIDE 27.3 MMOL/L (24-32); TOTAL PROTEIN 6.7 G/DL (6.4-8.2); eGFR 49 ML/MIN
[2022-07-25] MEDS ORDERED: temazepam 15mg capsule PO PRN (21:00)
[2022-07-25] MEDS ORDERED: hyDRALAzine 10mg tablet PO PRN (21:35)
[2022-07-25] MEDS ORDERED: ondansetron/PF 4mg/2ml inj IV PRN (21:35)
[2022-07-25] MEDS ORDERED: magnesium Cl slow-release 64mg tablet PO PRN (21:35)
[2022-07-25] MEDS ORDERED: acetaminophen 325mg tablet PO PRN ×2 (21:35)
[2022-07-25] MEDS ORDERED: potassium Cl 20 mEq SR tablet PO PRN ×2 (21:35)
[2022-07-25] MEDS ORDERED: magnesium 4gm in 100ml NS 100 ML IV PRN (21:35)
[2022-07-25] MEDS ORDERED: potassium Cl 40MEQ/1/2NS 520ml 520 ML IV PRN (21:35)
[2022-07-25] MEDS ORDERED: losartan 50mg tablet PO SCH (21:50)
[2022-07-25] MEDS ORDERED: carVEDilol 12.5mg tablet PO SCH (21:50)
[2022-07-25] MEDS ORDERED: CARV-50 PO (22:22)
[2022-07-25] MEDS ORDERED: ESOM20CA38 PO (22:57)
[2022-07-25] MEDS ORDERED: FURO20TA4 PO (23:00)
[2022-07-26 03:55] LABS: BASOPHILS # (AUTO) 0.1 X10'3 (0-0.2); BASOPHILS % (AUTO) 1.2 % (0-1); EOSINOPHILS # (AUTO) 0.4 X10'3 (0-0.9); EOSINOPHILS % (AUTO) 6.7 % (0-6); HEMATOCRIT 31.2 % (35.0-45.0); HEMOGLOBIN 10.3 g/dl (12.0-16.0); LYMPHOCYTES # (AUTO) 1.2 X10'3 (1.1-4.8); LYMPHOCYTES % (AUTO) 18.8 % (21-51); MEAN CORPUSCULAR HEMOGLOBIN 26.6 PG (27.0-31.0); MEAN CORPUSCULAR HGB CONC 32.9 g/dL (33.0-36.5); MEAN CORPUSCULAR VOLUME 80.8 FL (78-98); MEAN PLATELET VOLUME 7.3 FL (7.4-10.4); MONOCYTES # (AUTO) 0.7 X10'3 (0-0.9); MONOCYTES % (AUTO) 10.6 % (2-12); NEUTROPHILS % (AUTO) 62.7 % (42-75); PLATELET COUNT 236 X10'3 (140-440); RED BLOOD COUNT 3.86 X10'6 (4.20-5.60); RED CELL DISTRIBUTION WIDTH 15.7 % (11.5-14.5); WHITE BLOOD COUNT 6.4 X10'3 (4.5-11.0)
[2022-07-26 04:09] LABS: ALANINE AMINOTRANSFERASE 16 U/L (12-78); ALBUMIN 3.3 G/DL (3.4-5.0); ALBUMIN/GLOBULIN RATIO 1.2 (1.1-1.5); ALKALINE PHOSPHATASE 87 IU/L (46-116); ANION GAP 8 (8-16); ASPARTATE AMINO TRANSFERASE 21 U/L (10-37); BILIRUBIN,TOTAL 0.5 MG/DL (0.1-1.0); BLOOD UREA NITROGEN 20 MG/DL (7-18); BUN/CREATININE RATIO 21.1 (6.6-38.0); CALCIUM 9.8 MG/DL (8.5-10.1); CHLORIDE 105 MMOL/L (99-107); CREATININE 0.95 MG/DL (0.40-0.90); GLUCOSE 102 MG/DL (70-104); POTASSIUM 3.8 MMOL/L (3.5-5.1); SODIUM 139 MMOL/L (135-145); TOTAL CARBON DIOXIDE 25.7 MMOL/L (24-32); TOTAL PROTEIN 6.1 G/DL (6.4-8.2); eGFR 56 ML/MIN
--- NOTE | 2022-07-26 05:15 | NUR ---
Troponin increased from 70 to 78, notified
[2022-07-26] MEDS ORDERED: atorvastatin 20mg tablet PO SCH (08:00)
[2022-07-26] MEDS: K and/or MAG REPLACEMENT MC SCH ×2 (08:00→09:36)
[2022-07-26] MEDS: aspirin 81mg tab.chew PO SCH (09:23)
[2022-07-26] MEDS: thyroid, pork 30mg tablet PO SCH ×2 (09:24→09:36)
[2022-07-26] MEDS: losartan 50mg tablet PO SCH ×2 (09:24→20:00)
[2022-07-26] MEDS: carVEDilol 12.5mg tablet PO SCH ×2 (09:25→20:00)
[2022-07-26] MEDS: furosemide 20MG tablet PO SCH (09:25)
[2022-07-26] MEDS: potassium Cl 20 mEq SR tablet PO SCH (09:25)
[2022-07-26] MEDS: pantoprazole 40mg Tablet.DR PO SCH (09:29)
[2022-07-26] MEDS: heparin, porcine 5000 units/ml vial SQ SCH ×2 (09:29→20:46)
[2022-07-26] MEDS: clopidogrel 75mg tablet PO SCH (09:29)
[2022-07-26 19:19] LABS: CLARITY,URINE SLIGHTLY CLOUDY (Clear); COLOR,URINE YELLOW (Yellow); GLUCOSE, URINE NEGATIVE (Neg); KETONES,URINE NEGATIVE (Neg); LEUKOCYTE ESTERASE ,URINE NEGATIVE (Neg); NITRITES, URINE NEGATIVE (Neg); OCCULT BLOOD,URINE NEGATIVE (Neg); PROTEIN,URINE NEGATIVE (Neg); UROBILINOGEN,URINE 0.2 E.U/dL (0.2-1.0)
[2022-07-26 19:29] LABS: RBC,URINE NONE SEEN /HPF (0-2); SQUAMOUS EPITHELIAL CELL,UR FEW /LPF (FEW); UA COLLECTION TYPE NON-SPECIFIED; WBC,URINE 0-4 /HPF (0-4)
[2022-07-26 19:31] LABS: AMORPHOUS PHOSPHATES 1+; BACTERIA,URINE 3+ /HPF (Neg); WBC CLUMPS,URINE FEW /HPF (NEGATIVE)
--- NOTE | 2022-07-26 19:50 | NUR ---
Patient in room PCU 3018. I have received report from Peggy WARREN and had the opportunity to ask questions and assume patient care.
[2022-07-26 20:00] VITALS: BP 93/78
[2022-07-26] MEDS ORDERED: traZODone 50mg tablet PO SCH (21:00)
--- NOTE | 2022-07-26 23:00 | NUR ---
Patient in room PCU 3018. I have received report from Yomaira PATTEN and had the opportunity to ask questions and assume patient care.
--- NOTE | 2022-07-26 23:02 | NUR ---
Problems reprioritized. Patient report given, questions answered & plan of care reviewed with Rayne WARREN.
--- NOTE | 2022-07-27 06:14 | NUR ---
Problems reprioritized. Patient report given, questions answered & plan of care reviewed with Bela PATTEN.
--- NOTE | 2022-07-27 06:23 | NUR ---
Patient in room PCU 3018. I have received report from Rayne WARREN and had the opportunity to ask questions and assume patient care.
[2022-07-27 06:35] LABS: BASOPHILS # (AUTO) 0.1 X10'3 (0-0.2); BASOPHILS % (AUTO) 1.7 % (0-1); EOSINOPHILS # (AUTO) 0.3 X10'3 (0-0.9); EOSINOPHILS % (AUTO) 8.1 % (0-6); HEMATOCRIT 30.5 % (35.0-45.0); HEMOGLOBIN 10.2 g/dl (12.0-16.0); LYMPHOCYTES # (AUTO) 0.9 X10'3 (1.1-4.8); LYMPHOCYTES % (AUTO) 21.8 % (21-51); MEAN CORPUSCULAR HEMOGLOBIN 27.1 PG (27.0-31.0); MEAN CORPUSCULAR HGB CONC 33.4 g/dL (33.0-36.5); MEAN CORPUSCULAR VOLUME 81.1 FL (78-98); MEAN PLATELET VOLUME 7.5 FL (7.4-10.4); MONOCYTES # (AUTO) 0.6 X10'3 (0-0.9); MONOCYTES % (AUTO) 15.2 % (2-12); NEUTROPHILS # (AUTO) 2.2 X10'3 (1.8-7.7); NEUTROPHILS % (AUTO) 53.2 % (42-75); PLATELET COUNT 228 X10'3 (140-440); RED BLOOD COUNT 3.76 X10'6 (4.20-5.60); RED CELL DISTRIBUTION WIDTH 15.3 % (11.5-14.5); WHITE BLOOD COUNT 4.2 X10'3 (4.5-11.0)
[2022-07-27 06:58] LABS: ALANINE AMINOTRANSFERASE 15 U/L (12-78); ALBUMIN 3.3 G/DL (3.4-5.0); ALBUMIN/GLOBULIN RATIO 1.2 (1.1-1.5); ALKALINE PHOSPHATASE 71 IU/L (46-116); ANION GAP 8 (8-16); ASPARTATE AMINO TRANSFERASE 23 U/L (10-37); BILIRUBIN,TOTAL 0.6 MG/DL (0.1-1.0); BLOOD UREA NITROGEN 21 MG/DL (7-18); CALCIUM 10.2 MG/DL (8.5-10.1); CHLORIDE 105 MMOL/L (99-107); CHOL/HDL RATIO 2.5 (0.00-4.99); CHOLESTEROL 106 MG/DL (0-200); CREATININE 1.05 MG/DL (0.40-0.90); GLUCOSE 94 MG/DL (70-104); HDL CHOLESTEROL 43 MG/DL (35-60); LDL CHOLESTEROL 48 MG/DL (50-100); POTASSIUM 3.7 MMOL/L (3.5-5.1); SODIUM 139 MMOL/L (135-145); TOTAL CARBON DIOXIDE 25.9 MMOL/L (24-32); TOTAL PROTEIN 6.1 G/DL (6.4-8.2); TRIGLYCERIDES 136 MG/DL (20-135); eGFR 50 ML/MIN
[2022-07-27 07:44] LABS: LARGE PLATELETS FEW; TOTAL CELLS COUNTED 100
[2022-07-27 07:45] LABS: PLATELET ESTIMATE NORMAL
[2022-07-27] MEDS: aspirin 81mg tab.chew PO SCH (08:24)
[2022-07-27] MEDS: thyroid, pork 30mg tablet PO SCH (08:25)
[2022-07-27] MEDS: potassium Cl 20 mEq SR tablet PO SCH (08:25)
[2022-07-27] MEDS: carVEDilol 12.5mg tablet PO SCH (08:25)
[2022-07-27 08:26] VITALS: BP_SYST 152
[2022-07-27] MEDS: heparin, porcine 5000 units/ml vial SQ SCH (08:26)
[2022-07-27] MEDS: clopidogrel 75mg tablet PO SCH (08:26)
[2022-07-27] MEDS: losartan 50mg tablet PO SCH (08:26)
[2022-07-27] MEDS: furosemide 20MG tablet PO SCH (08:26)
[2022-07-27] MEDS: pantoprazole 40mg Tablet.DR PO SCH (08:26)
--- NOTE | 2022-07-27 13:31 | NUR ---
Patient stable for discharge per Dr. Azar. No new prescriptions ordered. PIV discontinued, cannula intact. Tele discontinued. All belongings collected and sent with patient, except for shoes. ER did not send them with the patient and we called to retrieve them and they couldn't find them. Wheeled to lobby via nursing staff and picked up by daughter.
== END 2022-07-27 13:19 | disposition home or self-care (01) ==
LOC: ER 11:14 → INTOOBSV 21:49 → ED HOLD 21:49 → PCU 3S 07-26 20:10
PROVIDERS: ADMIT Internal Medicine; ATTEND Family Medicine
DX: I16.0 Hypertensive urgency (principal); I13.0 Hypertensive heart and chronic kidney disease with heart failure and stage 1 through stage 4 chronic kidney disease, or unspecified chronic kidney disease; I50.20 Unspecified systolic (congestive) heart failure; N18.30 Chronic kidney disease, stage 3 unspecified; D63.1 Anemia in chronic kidney disease; I25.2 Old myocardial infarction; E83.52 Hypercalcemia; I24.8 Other forms of acute ischemic heart disease; I25.10 Atherosclerotic heart disease of native coronary artery without angina pectoris; E03.9 Hypothyroidism, unspecified; E78.5 Hyperlipidemia, unspecified; I73.9 Peripheral vascular disease, unspecified; Z79.82 Long term (current) use of aspirin; Z95.5 Presence of coronary angioplasty implant and graft; Z79.899 Other long term (current) drug therapy; Z88.0 Allergy status to penicillin
CPT/HCPCS: 36415; 71045; 80053; 80061; 81001; 82330; 83880; 84484; 85025; 87077; 87081; 87088; 87186; 93005; 93306; 96372; 99285; G0378; J1644; 85007

== ENCOUNTER → 2024-10-27 | Emergency (ER) | payer MEDICARE, OTHER ==
[~2024-10-27] VITALS: Ht 154.9 cm; Wt 53.6 kg
[~2024-10-27] MED LIST changes: +CHOL100046 PO; +ESOM20CA50 PO; +LABE100T8 PO; -ROSU40TA22 PO; +ROSU40TA89 PO; +labetalol 20mg/4ml (5mg/ml) syringe IV ONE
[2024-10-27 14:33] VITALS: TEMP 98
[2024-10-27] MEDS: labetalol 100mg tablet PO ONE (17:25)
[2024-10-27] MEDS: acetaminophen 325mg tablet PO ONE (17:25)
[2024-10-27 19:35] LABS: ALANINE AMINOTRANSFERASE 29 U/L (12-78); ALBUMIN 4.1 G/DL (3.4-5.0); ALBUMIN/GLOBULIN RATIO 1.2 (1.1-1.5); ALKALINE PHOSPHATASE 83 IU/L (46-116); ANION GAP 8 (8-16); ASPARTATE AMINO TRANSFERASE 27 U/L (10-37); BLOOD UREA NITROGEN 26 MG/DL (7-18); BUN/CREATININE RATIO 20.5 (10.0-20.0); CALCIUM 10.8 MG/DL (8.5-10.1); CHLORIDE 103 MMOL/L (99-107); CREATININE 1.27 MG/DL (0.40-0.90); GLUCOSE 104 MG/DL (70-104); POTASSIUM 4.5 MMOL/L (3.5-5.1); SODIUM 139 MMOL/L (135-145); TOTAL PROTEIN 7.4 G/DL (6.4-8.2); eCRCL 24 ML/MIN; eGFR 40 ML/MIN
[2024-10-27 21:57] VITALS: BP 162/89; PULSE 80; RESP 16; O2SAT 80
== END | disposition home or self-care (01) ==
LOC: ER 14:11
DX: I10 Essential (primary) hypertension (principal); I25.10 Atherosclerotic heart disease of native coronary artery without angina pectoris; Z88.0 Allergy status to penicillin; Z88.2 Allergy status to sulfonamides; Z88.5 Allergy status to narcotic agent; Z88.8 Allergy status to other drugs, medicaments and biological substances; Z98.890 Other specified postprocedural states; Z79.82 Long term (current) use of aspirin
CPT/HCPCS: 36415; 80053; 84484; 93005; 99285